=== PATIENT | female | born 1990 | race Caucasian/White ===

== ENCOUNTER 2021-04-20 09:31 | Outpatient (CLI) | payer BC ==
[2021-04-21 10:33] LABS: SARS-CoV-2 PCR by NAA Not Detected (NotDetected)
== END 2021-04-20 09:32 | disposition home or self-care (01) ==
LOC: CSHLAB 09:31
PROVIDERS: ATTEND Surgery
DX: Z20.822 Contact with and (suspected) exposure to COVID-19 (principal); K21.9 Gastro-esophageal reflux disease without esophagitis
CPT/HCPCS: U0003; U0005